=== PATIENT | female | born 1985 | race African-American/Black ===

== ENCOUNTER 2019-07-29 09:22 | Emergency (ER) | payer BC, OTHER ==
--- NOTE | 2019-07-29 10:34 | ER Document Report ---
ED General - General Chief Complaint: Cough Stated Complaint: SHORT OF BREATH,LIGHTHEADED Time Seen by Provider: 07/29/19 10:17 Primary Care Provider: [facility] [Provider Group] - Follow up in 3-5 days JULEE MASSEY MD [ACTIVE STAFF] - Follow up in 3-5 days Notes: 34-year-old female presents with intermittently productive cough for the past 4 days. Patient also has associated fever, T-max 101 degrees, that she has been taking Tylenol for. Patient also states she has had a sore throat due to the coughing, shortness of breath while coughing, some chest soreness from coughing. Patient denies any nausea/vomiting abdominal pain ear pain. Patient states the only medication she is currently taking is Clomid for infertility. Patient denies any history of asthma or COPD. Patient states she has been coughing up mucus intermittently but denies any blood. TRAVEL OUTSIDE OF THE [place] IN LAST 30 DAYS: No - Related Data Allergies/Adverse Reactions: No Known Allergies Allergy (Unverified 07/29/19 10:01) Past Medical History - General Information source: Patient - Social History Smoking Status: Unknown if Ever Smoked Family History: None Patient has suicidal ideation: No Patient has homicidal ideation: No Review of Systems - Review of Systems Notes: Constitutional: Positive for fever. HENT: Negative for sore throat. Eyes: Negative for visual changes. Cardiovascular: Positive for chest pain. Respiratory: Positive for shortness of breath and cough. Gastrointestinal: Negative for abdominal pain, vomiting or diarrhea. Genitourinary: Negative for dysuria. Musculoskeletal: Negative for back pain. Skin: Negative for rash. Neurological: Negative for headaches, weakness or numbness. 10 point ROS negative except as marked above and in HPI. Physical Exam - Vital signs Vitals: Resp Pulse Ox 17 96 07/29/19 09:54 07/29/19 09:54 - Notes Notes: GENERAL: Well-appearing, well-nourished and in no acute distress. HEAD: Atraumatic, normocephalic. EYES: Extraocular movements intact, sclera anicteric, conjunctiva are normal. ENT: Nares patent, oropharynx clear without exudates. No tonsillar hypertrophy, no erythema, no exudates. Uvula midline without edema. No muffled voice. No trismus. No PAINT SPRAY TENDER. Moist mucous membranes. NECK: Normal range of motion, supple without lymphadenopathy or JVD. LUNGS: Breath sounds clear to auscultation bilaterally and equal. No wheezes rales or rhonchi. HEART: Regular rate and rhythm without murmurs, rubs or gallops. EXTREMITIES: Normal range of motion, no pitting or edema. No clubbing or cyanosis. NEUROLOGICAL: Cranial nerves II through XII grossly intact. Normal speech, normal gait. PSYCH: Normal mood, normal affect. SKIN: Warm, Dry, normal turgor, no rashes or lesions noted. Course - Re-evaluation Re-evalutation: 07/29/19 34-year-old female presents for intermittent productive cough with dyspnea upon coughing and chest soreness. Patient has had associated fever T- max 101 degrees. EKG shows normal sinus rhythm at a rate of 98. Patient is nontoxic, well-appearing. Lungs clear to auscultation bilaterally. Regular rate and rhythm. PE is otherwise unremarkable. Chest x-ray ordered. 07/29/19 11:59 chest x-ray shows no infiltrates and is otherwise unremarkable. Discussed this with patient including EKG. Patient given strict return precautions. Patient given symptomatic relief. Patient given follow-up with PCP. Patient voices understanding and agrees with plan of care. - Vital Signs Vital signs: Temp Pulse Resp BP Pulse Ox 98.2 F 17 96 07/29/19 10:00 07/29/19 09:54 07/29/19 09:54 Discharge - Discharge Clinical Impression: Acute URI Condition: Stable Disposition: HOME, SELF-CARE Instructions: Upper Respiratory Illness ([facility]) Additional Instructions: Your chest x-ray did not show any pneumonias and was otherwise normal. Please take medications as prescribed. Please follow-up with your primary care doctor in 3 to 5 days. Return to ER for any worsening symptoms, including coughing up blood, fever not controlled by medication, worsening pain, shortness of breath NOT with coughing, abdominal pain, nausea/vomiting, or any other symptoms that are concerning to you. Prescriptions: Benzonatate [Tessalon Perles 100 mg Capsule] 100 mg PO Q8HP PRN #40 capsule PRN Reason: Fexofenadine/Pseudoephedrine [Radha-D 24 Hour Tablet] 1 each PO DAILY #20 tab.er.24h Fluticasone Propionate [Flonase Nasal [place] 50 Mcg/[place] 16 gm] 1 spray NASL Q12 #1 inhaler Forms: Return to Work Referrals: JULEE MASSEY MD [ACTIVE STAFF] - Follow up in 3-5 days [facility] [Provider Group] - Follow up in 3-5 days
--- NOTE | 2019-07-29 10:53 | RADIOLOGY REPORT (SQ) ---
EXAM DESCRIPTION: CHEST 2 VIEWS COMPLETED DATE/TIME: 07/29/2019 10:46 am REASON FOR STUDY: cough, dyspnea COMPARISON: None. EXAM PARAMETERS: NUMBER OF VIEWS: two views TECHNIQUE: Digital Frontal and Lateral radiographic views of the chest acquired. RADIATION DOSE: NA LIMITATIONS: none FINDINGS: LUNGS AND PLEURA: No opacities, masses or pneumothorax. No pleural effusion. MEDIASTINUM AND HILAR STRUCTURES: No masses or contour abnormalities. HEART AND VASCULAR STRUCTURES: Heart normal size. No evidence for failure. BONES: No acute findings. HARDWARE: None in the chest. OTHER: No other significant finding. IMPRESSION: NO ACUTE RADIOGRAPHIC FINDING IN THE CHEST. TECHNICAL DOCUMENTATION: JOB ID: [id number] [employer]- All Rights Reserved Reading location - IP/workstation name: [email or web address]
--- NOTE | 2019-07-29 14:37 | EKG REPORT ---
SEVERITY:- NORMAL ECG - SINUS RHYTHM : Confirmed by: Roland Granados MD 29-Jul-2019 14:36:46
== END 2019-07-29 12:01 | disposition home or self-care (01) ==
LOC: ER 09:22
DX: J06.9 Acute upper respiratory infection, unspecified (principal); R42 Dizziness and giddiness; R50.9 Fever, unspecified
CPT/HCPCS: 71046; 81025; 93005; 93010; 99283

== ENCOUNTER → 2019-07-30 | Outpatient (CLI) | payer OTHER ==
--- NOTE | 2019-07-30 18:32 | RADIOLOGY REPORT (SQ) ---
EXAM DESCRIPTION: U/S NON OB PEL TV W/DOPPLER COMPLETED DATE/TIME: 07/30/2019 5:35 pm REASON FOR STUDY: N97.9 FEMALE INFERTILITY, UNSPECIFIED N97.9 FEMALE INFERTILITY, UNSPECIFIED COMPARISON: None. TECHNIQUE: Dynamic and static grayscale images acquired of the pelvis via transvaginal approach and recorded on PACS. Additional selected color Doppler and spectral images recorded. LIMITATIONS: None. FINDINGS: UTERUS: Contour normal. No mass. ENDOMETRIAL STRIPE: No focal or generalized thickening. No masses. CERVIX: No nabothian cysts. RIGHT OVARY AND DOPPLER: Normal size. 9 follicles are identified. These are less than 10 mm in size . LEFT OVARY AND DOPPLER: Normal size. 12 follicles are identified. These are less than 10 mm in size . FREE FLUID: Trace free fluid in the posterior cul-de-sac. OTHER: No other significant finding. MEASUREMENTS: UTERUS: 8.7 x 4.7 x 5.4 cm. ENDOMETRIAL STRIPE: 4 mm. RIGHT OVARY: 3.9 x 2.6 x 2.3 cm. LEFT OVARY: 1.6 x 2.1 x 3.1 cm. IMPRESSION: Normal transvaginal pelvic ultrasound. Ovarian follicles are present bilaterally as shakeel cribed. There are no follicles greater than 10 mm in size. TECHNICAL DOCUMENTATION: JOB ID: [id number] [employer]- All Rights Reserved Rev-12/13 Reading location - IP/workstation name: [email or web address]
== END ==
LOC: LAB 15:23
DX: N97.9 Female infertility, unspecified (principal)
CPT/HCPCS: 36415; 76830; 84702; 93976